=== PATIENT | female | born 1950 | race Hispanic/Latino ===

== ENCOUNTER 2017-09-05 10:09 | Emergency (ER) | payer MEDICARE, OTHER ==
[2017-09-05 10:09] VITALS: BMI 33.6
[2017-09-05 10:16] VITALS: O2SAT 99
--- NOTE | 2017-09-05 10:19 | ED PDOC ---
Arrival/HPI - General Chief Complaint: Dizziness/Lightheaded Time Seen by Provider: 09/05/17 10:12 Historian: Patient - History of Present Illness Narrative History of Present Illness (Text): 09/05/17 10:18 66 year old female, whose past medical history includes hyperlipidemia, SVT A- fib s/p ablation, and s/p transseptal ablation (05/2017), presents to the emergency department complaining of dizziness that began 15 minutes prior to arrival. Patient reports she was at work when the symptoms began. She began to feel lightheaded and experienced a sudden bowel movement associated with diaphoretic and shortness of breath. Patient describes the stool color as brown. Patient also reported upper-respiratory symptoms of cough with phlegm, fever, and chills that began 3 days ago. Patient reports back pain, but denies any chest pain, nausea, vomiting, diarrhea, urinary symptoms, neck pain, or any other complaints. PMD: Dr. Raul David Gluer Machine Operator: Dr. 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) Symptom Onset: Sudden Activities at Onset: Light Context: Work Past Medical History - Provider Review Nursing Documentation Reviewed: Yes - Infectious Disease Hx of Infectious Diseases: None - Tetanus Immunization Tetanus Immunization: Unknown - Reproductive Menopause: Yes - Cardiac Hx Atrial Fibrillation: Yes Other/Comment: svt - Pulmonary Hx Respiratory Disorders: No - Neurological Hx Paralysis: No - HEENT Hx HEENT Disorder: Yes (eyeglasses) - Renal Hx Renal Disorder: No - Endocrine/Metabolic Hx Endocrine Disorders: No - Hematological/Oncological Hx Blood Transfusions: No Hx Blood Transfusion Reaction: No - Integumentary Hx Dermatological Disorder: No - Musculoskeletal/Rheumatological Hx Musculoskeletal Disorders: No - Gastrointestinal Hx Gastroesophageal Reflux: Yes - Genitourinary/Gynecological Hx Genitourinary Disorders: No - Psychiatric Hx Substance Use: No - Surgical History Other/Comment: bilateral mastectomy - Anesthesia Hx Anesthesia Reactions: Yes (VOMITING) Hx Malignant Hyperthermia: No - Suicidal Assessment Feels Threatened In Home Enviroment: No Family/Social History - Physician Review Nursing Documentation Reviewed: Yes Family/Social History: No Known Family HX Smoking Status: Never Smoked Hx Alcohol Use: Yes (SOCIAL) Frequency of alcohol use: Socially Hx Substance Use: No Hx Substance Use Treatment: No Allergies/Home Meds Allergies/Adverse Reactions: Allergies levofloxacin [From Levaquin] Allergy (Severe, Verified 02/29/16 13:30) RASH pneumococcal vaccine Adverse Reaction (Verified 02/29/16 23:15) ITCHING Home Medications: Home Meds Medication Instructions Recorded Confirmed Calcium/Vitamin D [Oyster Shell 1 tab PO DAILY 02/29/16 04/10/16 Calcium/Vitamin D 500 mg-200 IU] L.acidoph,Paracasei, B.lactis 1 cap PO DAILY 02/29/16 04/10/16 [Probiotic] Omeprazole [Prilosec] 40 mg PO DAILY 02/29/16 04/10/16 Propranolol HCl [Inderal LA] 80 mg PO DAILY 04/09/16 04/10/16 Metoprolol Tartrate [Lopressor] 25 mg PO BID 04/10/16 04/10/16 Review of Systems - Physician Review All systems were reviewed & negative as marked: Yes - Review of Systems Constitutional: Fevers, Other (Chills) Respiratory: SOB, Cough Cardiovascular: absent: Chest Pain Genitourinary Female: absent: Dysuria, Frequency, Hematuria Musculoskeletal: Back Pain. absent: Neck Pain Neurological: Headache, Dizziness (Lightheadediness) Endocrine: Diaphoresis Physical Exam Vital Signs Reviewed: Yes Vital Signs Temp Pulse Resp BP Pulse Ox 09/05/17 13:15 89 20 142/78 99 09/05/17 10:09 100.3 F H 109 H 18 114/70 99 Temperature: Febrile Blood Pressure: Normal Pulse: Tachycardic Respiratory Rate: Normal Appearance: Positive for: Well-Appearing, Non-Toxic, Comfortable Pain Distress: None Mental Status: Positive for: Alert and Oriented X 3 Finger Stick Blood Glucose: 121 - Systems Exam Head: Present: Atraumatic, Normocephalic Pupils: Present: PERRL Extroacular Muscles: Present: EOMI Conjunctiva: Present: Normal Mouth: Present: Moist Mucous Membranes Neck: Present: Normal Range of Motion Respiratory/Chest: Present: Clear to Auscultation, Good Air Exchange. No: Respiratory Distress, Accessory Muscle Use Cardiovascular: Present: Regular Rate and Rhythm, Normal S1, S2. No: Murmurs Abdomen: Present: Normal Bowel Sounds. No: Tenderness, Distention, Peritoneal Signs Back: Present: Normal Inspection Upper Extremity: Present: Normal Inspection. No: Cyanosis, Edema Lower Extremity: Present: Normal Inspection. No: Edema Neurological: Present: GCS=15, CN II-XII Intact, Speech Normal Skin: Present: Warm, Normal Color, Diaphoretic. 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 Patient began cold-like symptoms 3 days ago. Differential Diagnosis included but are not limited to: Near Syncope secondary to dehydration, viral syndrome r/o PNA r/o UTI Plan: -- VBG -- EKG -- Chest X-ray -- IV Fluids -- Urinalysis -- Influenza A B -- Reassess and disposition Prior Visits: Notes and results from previous visits were reviewed. Patient was last seen in the emergency department on 02/29/16 complaining of intermittent palpations. Patient was admitted. Progress Notes: EKG shows Junctional rhythm at [address] elevations. Interpreted by me. PROCEDURE: Chest X-ray Dictator: Iker Mascorro MD Report Date : 09/05/2017 10:59:31 IMPRESSION: No acute consolidation. Suspect minimal linear scarring left lateral lower lung field 09/05/17 13:58 Labs reviewed. Creatinine normal. After 2 Liters of IVF patient felt much better. Orthostatics normal. She was able to stand up without lightheadedness. No nausea or vomiting. UA showed negative ketones. She will go home with her . She was advised to return to the ED if symptoms worsen or any other concern. - Lab Interpretations Lab Results: 09/05/17 10:30 09/05/17 10:30 Lab Results 09/05/17 13:35: Urine Color Yellow, Urine Appearance Clear, Urine pH 6.0, Ur Specific Una 1.015, Urine Protein Trace H, Urine Glucose (UA) Negative, Urine Ketones Negative, Urine Blood Negative, Urine Nitrate Negative, Urine Bilirubin Negative, Urine Urobilinogen 1.0 H, Ur Leukocyte Esterase Trace H, Urine RBC Pending, Urine WBC Pending 09/05/17 11:12: Urine Color Cancelled, Urine Appearance Cancelled, Urine pH Cancelled, Ur Specific Una Cancelled, Urine Protein Cancelled, Urine Glucose (UA) Cancelled, Urine Ketones Cancelled, Urine Blood Cancelled, Urine Nitrate Cancelled, Urine Bilirubin Cancelled, Urine Urobilinogen Cancelled, Ur Leukocyte Esterase Cancelled, Urine RBC Cancelled, Urine WBC Cancelled, Ur Epithelial Cells Cancelled, Calcium Oxalate Crystal Cancelled, Uric Acid Crystals Cancelled, Triple Phos Crystals Cancelled, Other Crystals Cancelled, Amorphous Sediment Cancelled, Urine Bacteria Cancelled, Hyaline Casts Cancelled , Fine Granular Casts Cancelled, Coarse Granular Casts Cancelled, Waxy Casts Cancelled, RBC Casts Cancelled, WBC Casts Cancelled, Urine Other Cancelled 09/05/17 10:30: pO2 24 L, VBG pH 7.36, VBG pCO2 44.0, VBG HCO3 24.9, VBG Total CO2 26.3, VBG O2 Sat (Calc) 56.5, VBG Base Excess -0.8 L, VBG Potassium 3.9, Sodium 140.0, Chloride 103.0, Glucose 127 H, Lactate 2.3 H, FiO2 21.0, Venous Blood Potassium 3.9 09/05/17 10:30: Influenza Typ A,B (EIA) Negative for flu a/b 09/05/17 10:30: Sodium 140, Chloride 104, Potassium 3.8, Carbon Dioxide 24, Anion Gap 16, BUN 17, Creatinine 1.2, Est GFR ( Amer) 54, Est GFR (Non- Af Amer) 45, Random Glucose 126 H, Calcium 9.7, Magnesium 1.8, Total Bilirubin 0.9, AST 58 H, ALT 54, Alkaline Phosphatase 89, Lactate Dehydrogenase 672, Total Creatine Kinase 102, Troponin I < 0.01, Total Protein 8.1, Albumin 4.6, Globulin 3.5, Albumin/Globulin Ratio 1.3 09/05/17 10:30: WBC 6.9, RBC 5.28, Hgb 15.8, Hct 47.2, MCV 89.4, MCH 29.9, MCHC 33.5, RDW 12.9, Plt Count 242, MPV 9.2, Gran % 67.6, Lymph % (Auto) 17.9 L, [place] % (Auto) 12.3 H, Eos % (Auto) 1.6, Baso % (Auto) 0.6, Gran # 4.69, Lymph # 1.2, [place] # 0.9 H, Eos # 0.1, Baso # 0.04 I have reviewed the lab results: Yes - RAD Interpretation Radiology Orders: 09/05/17 10:21 CHEST PORTABLE [RAD] Stat - EKG Interpretation Interpreted by ED Physician: Yes Type: 12 lead EKG - Medication Orders Current Medication Orders: Discontinued Medications Acetaminophen (Tylenol 325mg Tab) 975 mg PO STAT STA Stop: 09/05/17 11:11 Last Admin: 09/05/17 11:33 Dose: 975 mg MAR Pain/Vitals Document 09/05/17 11:33 SRE (Rec: 09/05/17 11:33 SRE [id number]) Pain Reassessment Is This A Pain ReAssessment? No Sodium Chloride (Sodium Chloride 0.9%) 1,000 mls @ 999 mls/hr IV .Q1H1M STA Stop: 09/05/17 11:22 Last Admin: 09/05/17 11:10 Dose: 999 mls/hr eMAR Start Stop Document 09/05/17 11:10 SRE (Rec: 09/05/17 11:10 SRE [id number]) Intravenous Solution Start Date 09/05/17 Start Time 10:30 End Date 09/05/17 End time 11:30 Total Infusion Time 60 Sodium Chloride (Sodium Chloride 0.9%) 1,000 mls @ 999 mls/hr IV .Q1H1M STA Stop: 09/05/17 13:28 Last Admin: 09/05/17 12:56 Dose: 999 mls/hr eMAR Start Stop Document 09/05/17 12:56 SRE (Rec: 09/05/17 12:57 SRE [id number]) Intravenous Solution Start Date 09/05/17 Start Time 12:30 End Date 09/05/17 End time 13:30 Total Infusion Time 60 - Scribe Statement The provider has reviewed the documentation as recorded by the Cynthia Pritchett Provider Scribe Attestation: All medical record entries made by the Cynthia were at my direction and personally dictated by me. I have reviewed the chart and agree that the record accurately reflects my personal performance of the history, physical exam, medical decision making, and the department course for this patient. I have also personally directed, reviewed, and agree with the discharge instructions and disposition. Disposition/Present on Arrival - Present on Arrival Any Indicators Present on Arrival: No History of DVT/PE: No History of Uncontrolled Diabetes: No Urinary Catheter: No History of Decub. Ulcer: No History Surgical Site Infection Following: None - Disposition Have Diagnosis and Disposition been Completed?: Yes Diagnosis: Viral syndrome, Dehydration Disposition: HOME/ ROUTINE Disposition Time: 14:00 Patient Plan: Discharge Patient Problems: Current Active Problems Problem Status Onset Viral syndrome Acute Dehydration Acute Condition: IMPROVED Discharge Instructions (ExitCare): Dehydration (ED), Viral Syndrome (ED) Additional Instructions: Cassie Echeverria, thank you for letting us take care of you today. Your provider was Dr. Garg. You were treated for UTI, Viral Syndrome. The emergency medical care you received today was directed at your acute symptoms. If you were prescribed any medication, please fill it and take as directed. It may take several days for your symptoms to resolve. Return to the Emergency Department if your symptoms worsen, do not improve, or if you have any other problems. Please contact your doctor or call one of the physicians/clinics you have been referred to that are listed on the Patient Visit Information form that is included in your discharge packet. Bring any paperwork you were given at discharge with you along with any medications you are taking to your follow up visit. Our treatment cannot replace ongoing medical care by a primary care provider (PCP) outside of the emergency department. Thank you for allowing the [facility] team to be part of your care today. If you had an X-Ray or CT scan: A Radiologist will review the ED reading if any change in treatment is needed we will contact you. If you had a blood, urine, or wound culture: It will take several days for the results, if any change in treatment is needed we will contact you. If you had an STI test: It will take 48 hours for the results. Please call after 1 week if you have not heard back. Referrals: Raul David MD [Primary Care Provider] - Follow up with primary Forms: [employer] ([place]ian), WORK NOTE
[2017-09-05] MEDS ORDERED: Sodium Chloride 0.9% 1,000 ML IV STA ×2 (10:22→12:28)
[2017-09-05 10:26] VITALS: TEMP 100.3
--- NOTE | 2017-09-05 11:01 | RAD ---
HISTORY: chest pain and dizziness, cough r/o pna COMPARISON: Comparison chest dated 02/29/2016. FINDINGS: LUNGS: Re- demonstrated is some minimal curvilinear scarring in the left lateral lower lung field. Metallic clips also again seen overlying the left lower nel thorax PLEURA: No significant pleural effusion identified, no pneumothorax apparent. CARDIOVASCULAR: Normal. OSSEOUS STRUCTURES: No significant abnormalities. VISUALIZED UPPER ABDOMEN: Normal. OTHER FINDINGS: None. IMPRESSION: No acute consolidation. Suspect minimal linear scarring left lateral lower lung field
[2017-09-05 11:02] LABS: VENOUS BLOOD GAS BASE EXCESS -0.8 mmol/L (0.0-2.0); VENOUS BLOOD PH 7.36 (7.32-7.43)
[2017-09-05 11:07] LABS: BASO # 0.04 K/mm3 (0.0-2.0); BASO % 0.6 % (0.0-3.0); EOS # 0.1 (0.0-0.7); EOS % 1.6 % (1.5-5.0); GRAN # 4.69 (1.4-6.5); GRAN % 67.6 % (50.0-68.0); HEMATOCRIT 47.2 % (36.0-48.0); LYMPH # 1.2 (1.2-3.4); LYMPH % 17.9 % (22.0-35.0); MEAN CELL VOLUME 89.4 fl (80.0-105.0); MEAN CORPUSCULAR HEMOGLOBIN 29.9 pg (25.0-35.0); MEAN CORPUSCULAR HGB CONC 33.5 g/dl (31.0-37.0); MEAN PLATELET VOLUME 9.2 fl (7.0-11.0); MONO # 0.9 (0.1-0.6); MONO % 12.3 % (1.0-6.0); RED CELL DISTRIBUTION WIDTH 12.9 % (11.5-14.5); WHITE BLOOD COUNT 6.9 10^3/ul (4.5-11.0)
[2017-09-05 11:14] LABS: ALB/GLOB RATIO 1.3 (1.1-1.8); ALKALINE PHOSPHATASE 89 U/L (38-126); ALT/SGPT 54 U/L (7-56); AST/SGOT 58 U/L (14-36); BILIRUBIN,TOTAL 0.9 mg/dL (0.2-1.3); BLOOD UREA NITROGEN 17 mg/dL (7-21); CALCIUM 9.7 mg/dL (8.4-10.5); CARBON DIOXIDE 24 mmol/L (21-33); CHLORIDE 104 mmol/L (98-107); GFR AFRICAN-AMERICAN 54; GLUCOSE,RANDOM 126 mg/dL (70-110); MAGNESIUM 1.8 mg/dL (1.7-2.2); POTASSIUM 3.8 mmol/L (3.6-5.0); SODIUM 140 mmol/L (132-148); TOTAL PROTEIN 8.1 g/dL (5.8-8.3)
[2017-09-05 11:22] LABS: TROPONIN I < 0.01 ng/mL
[2017-09-05 13:16] VITALS: BP 142/78; PULSE 89; RESP 20
[2017-09-05 13:46] LABS: URINE APPEARANCE CLEAR (CLEAR); URINE BILIRUBIN NEGATIVE (NEGATIVE); URINE BLOOD NEGATIVE (NEGATIVE); URINE COLOR YELLOW (YELLOW); URINE GLUCOSE (UA) NEGATIVE (NEGATIVE); URINE KETONE NEGATIVE (NEGATIVE); URINE LEUKOCYTE ESTERASE TRACE Leu/uL (NEGATIVE); URINE PROTEIN TRACE mg/dL (<30 mg/dL)
[2017-09-05 14:06] LABS: URINE RBC 0 - 2 /hpf (0-2)
[2017-09-05 14:07] LABS: URINE AMORPHOUS SEDIMENT MODERATE; URINE BACTERIA MANY (NEG)
--- NOTE | 2017-09-06 08:46 | CARD ---
APPROVED REPORT EKG Measurement Heart [id number] <Conclusion> Accelerated Junctional rhythm VS A flutter with 3;1 conduction Abnormal ECG
== END 2017-09-05 14:19 | disposition home or self-care (01) ==
LOC: ED 10:09
DX: B34.9 Viral infection, unspecified (principal); E86.0 Dehydration; E78.5 Hyperlipidemia, unspecified; I48.91 Unspecified atrial fibrillation; I47.1 Supraventricular tachycardia
CPT/HCPCS: 71010; 80053; 81001; 82550; 82803; 83615; 83735; 84484; 85025; 87040; 87086; 87181; 87804; 93005; 96360; 96361; 99285; J7040

== ENCOUNTER 2018-03-29 10:49 | Emergency (ER) | payer OTHER ==
[2018-03-29 10:51] VITALS: BMI 33.6
[2018-03-29 11:44] VITALS: RESP 18; TEMP 98.5
[2018-03-29 12:12] VITALS: BP 122/70; PULSE 71; O2SAT 99
--- NOTE | 2018-03-29 17:01 | ED PDOC ---
Arrival/HPI - General Chief Complaint: Abnormal Skin Integrity Time Seen by Provider: 03/29/18 11:25 Historian: Patient - History of Present Illness Narrative History of Present Illness (Text): 03/29/18 15:35 67 year old female, with past medical history of hyperlipidemia, SVT A-fib s/p ablation, and s/p transseptal ablation (05/2017), presents to the Emergency department complaining of painful rash to his her groin area for past several days. Patient states radiating pain to his left leg and discomfort while walking. Patient denies any fever, chills, nausea, vomiting, diarrhea, abdominal pain, dysuria, vaginal discharge or complaints, chest pain, shortness of breath or any other complaints. Time/Duration: < week Symptom Onset: Gradual Symptom Course: Unchanged Activities at Onset: Light Context: Home Past Medical History - Provider Review Nursing Documentation Reviewed: Yes - Infectious Disease Hx of Infectious Diseases: None - Tetanus Immunization Tetanus Immunization: Unknown - Cardiac Hx Atrial Fibrillation: Yes Other/Comment: svt - Pulmonary Hx Respiratory Disorders: No - Neurological Hx Paralysis: No - HEENT Hx HEENT Disorder: Yes (eyeglasses) - Renal Hx Renal Disorder: No - Endocrine/Metabolic Hx Endocrine Disorders: No - Hematological/Oncological Hx Blood Transfusions: No Hx Blood Transfusion Reaction: No - Integumentary Hx Dermatological Disorder: No - Musculoskeletal/Rheumatological Hx Musculoskeletal Disorders: No - Gastrointestinal Hx Gastroesophageal Reflux: Yes - Genitourinary/Gynecological Hx Genitourinary Disorders: No - Psychiatric Hx Emotional Abuse: No Hx Physical Abuse: No Hx Substance Use: No - Surgical History Other/Comment: bilateral mastectomy - Anesthesia Hx Anesthesia: Yes Hx Anesthesia Reactions: Yes (VOMITING) Hx Malignant Hyperthermia: No - Suicidal Assessment Feels Threatened In Home Enviroment: No Family/Social History - Physician Review Nursing Documentation Reviewed: Yes Family/Social History: No Known Family HX Smoking Status: Never Smoked Hx Alcohol Use: Yes (SOCIAL) Hx Substance Use: No Hx Substance Use Treatment: No Allergies/Home Meds Allergies/Adverse Reactions: Allergies levofloxacin [From Levaquin] Allergy (Severe, Verified 02/29/16 13:30) RASH pneumococcal vaccine Adverse Reaction (Verified 02/29/16 23:15) ITCHING Home Medications: Home Meds Medication Instructions Recorded Confirmed Calcium/Vitamin D [Oyster Shell 1 tab PO DAILY 02/29/16 04/10/16 Calcium/Vitamin D 500 mg-200 IU] L.acidoph,Paracasei, B.lactis 1 cap PO DAILY 02/29/16 04/10/16 [Probiotic] Omeprazole [Prilosec] 40 mg PO DAILY 02/29/16 04/10/16 Propranolol HCl [Inderal LA] 80 mg PO DAILY 04/09/16 04/10/16 Metoprolol Tartrate [Lopressor] 25 mg PO BID 04/10/16 04/10/16 Review of Systems - Physician Review All systems were reviewed & negative as marked: Yes - Review of Systems Constitutional: Normal. absent: Fevers Eyes: Normal ENT: Normal Respiratory: Normal. absent: SOB Cardiovascular: Normal. absent: Chest Pain Gastrointestinal: Normal. absent: Abdominal Pain, Diarrhea, Nausea, Vomiting Genitourinary Female: Normal. absent: Dysuria, Vaginal Discharge Musculoskeletal: Normal Skin: Rash (left groin area) Neurological: Normal Endocrine: Normal Hemo/Lymphatic: Normal Psychiatric: Normal Physical Exam Vital Signs Reviewed: Yes Vital Signs Temp Pulse Resp BP Pulse Ox 03/29/18 12:11 71 18 122/70 99 03/29/18 10:51 98.5 F 76 18 123/70 98 Temperature: Afebrile Blood Pressure: Normal Pulse: Regular Respiratory Rate: Normal Appearance: Positive for: Well-Appearing, Non-Toxic, Comfortable Pain Distress: None Mental Status: Positive for: Alert and Oriented X 3 - Systems Exam Head: Present: Atraumatic, Normocephalic Pupils: Present: PERRL Extroacular Muscles: Present: EOMI Conjunctiva: Present: Normal Mouth: Present: Moist Mucous Membranes Neck: Present: Normal Range of Motion Respiratory/Chest: Present: Clear to Auscultation, Good Air Exchange. No: Respiratory Distress, Accessory Muscle Use Cardiovascular: Present: Regular Rate and Rhythm, Normal S1, S2. No: Murmurs Abdomen: No: Tenderness, Distention, Peritoneal Signs Back: Present: Normal Inspection Upper Extremity: Present: Normal Inspection. No: Cyanosis, Edema Lower Extremity: Present: Normal Inspection. No: Edema Neurological: Present: GCS=15, CN II-XII Intact, Speech Normal Skin: Present: Warm, Dry, Rashes (dermatomal rash to left groin area, tender to touch.), Normal Color Psychiatric: Present: Alert, Oriented x 3, Normal Insight, Normal Concentration Medical Decision Making ED Course and Treatment: 03/29/18 15:35 Impression: 67 year old female presents to the Emergency department for rash to left groin area. Plan: -- Reassess and disposition Prior Visits: Notes and results from previous visits were reviewed. Progress Notes: - Scribe Statement The provider has reviewed the documentation as recorded by the Scribe Jeffery Graves. All medical record entries made by the Scribe were at my direction and personally dictated by me. I have reviewed the chart and agree that the record accurately reflects my personal performance of the history, physical exam, medical decision making, and the department course for this patient. I have also personally directed, reviewed, and agree with the discharge instructions and disposition. Disposition/Present on Arrival - Present on Arrival Any Indicators Present on Arrival: No History of DVT/PE: No History of Uncontrolled Diabetes: No Urinary Catheter: No History of Decub. Ulcer: No History Surgical Site Infection Following: None - Disposition Have Diagnosis and Disposition been Completed?: Yes Diagnosis: Zoster Disposition: HOME/ ROUTINE Disposition Time: 11:45 Condition: GOOD Discharge Instructions (ExitCare): Shingles (ED) Additional Instructions: CORBY DAVILA, thank you for letting us take care of you today. Your provider was Kedar Aaron DO and you were treated for LEG PAIN/FEVER/CHILLS /RASH. The emergency medical care you received today was directed at your acute symptoms. If you were prescribed any medication, please fill it and take as directed. It may take several days for your symptoms to resolve. Return to the Emergency Department if your symptoms worsen, do not improve, or if you have any other problems. Please contact your doctor or call one of the physicians/clinics you have been referred to that are listed on the Patient Visit Information form that is included in your discharge packet. Bring any paperwork you were given at discharge with you along with any medications you are taking to your follow up visit. Our treatment cannot replace ongoing medical care by a primary care provider outside of the emergency department. Thank you for allowing the [facility] team to be part of your care today. Follow up with your primary care doctor in 3-4 days for re-evaluation and further management. Prescriptions: Acetaminophen with Codeine [Tylenol with Codeine #3 Tablet] 1 each PO Q6 PRN # 20 tablet PRN Reason: Pain, Severe (8-10) Ondansetron ODT [Zofran ODT] 8 mg PO Q8 PRN #20 odt PRN Reason: Nausea/Vomiting predniSONE [Prednisone] 40 mg PO DAILY #10 tab Valacyclovir HCl [Valtrex] 1 gm PO TID #21 tablet Referrals: Raul David MD [Primary Care Provider] - Follow up with primary Forms: [employer] ([place]ian)
== END 2018-03-29 12:11 | disposition home or self-care (01) ==
LOC: ED 10:49
DX: B02.9 Zoster without complications (principal)

== ENCOUNTER 2018-04-08 07:59 | Emergency (ER) | payer OTHER ==
[2018-04-08 07:59] VITALS: BMI 33.6
[2018-04-08 08:34] VITALS: TEMP 99.2
--- NOTE | 2018-04-08 09:27 | ED PDOC ---
Arrival/HPI - General Historian: Patient - History of Present Illness Time/Duration: Other (see hpi) Context: Home - General Chief Complaint: Abnormal Skin Integrity Time Seen by Provider: 04/08/18 09:13 - History of Present Illness Narrative History of Present Illness (Text): 04/08/18 09:13 This 67 year old female, with past medical history of hyperlipidemia, SVT A-fib s/p ablation, and s/p transseptal ablation (05/2017), presents to the Emergency department complaining of nausea, and left groin pain x 2 days. Patient stated she has not been able to tolerate food or fluids due to nausea, and vomiting for 24 hours. Denies sob, cp, abdominal pain, constipation, or urinary symptoms. Patient has been taking Tylenol #3, Tramadol, and Gabapentin for pain (Maria Del Carmen Siu) Past Medical History - Provider Review Nursing Documentation Reviewed: Yes - Infectious Disease Hx of Infectious Diseases: None - Tetanus Immunization Tetanus Immunization: Unknown - Reproductive Menopause: Yes - Cardiac Hx Atrial Fibrillation: Yes Other/Comment: svt - Pulmonary Hx Respiratory Disorders: No - Neurological Hx Paralysis: No - HEENT Hx HEENT Disorder: Yes (eyeglasses) - Renal Hx Renal Disorder: No - Endocrine/Metabolic Hx Endocrine Disorders: No - Hematological/Oncological Hx Blood Transfusions: No Hx Blood Transfusion Reaction: No - Integumentary Hx Dermatological Disorder: No - Musculoskeletal/Rheumatological Hx Musculoskeletal Disorders: No - Gastrointestinal Hx Gastroesophageal Reflux: Yes - Genitourinary/Gynecological Hx Genitourinary Disorders: No - Psychiatric Hx Emotional Abuse: No Hx Physical Abuse: No Hx Substance Use: No - Surgical History Other/Comment: bilateral mastectomy - Anesthesia Hx Anesthesia: Yes Hx Anesthesia Reactions: Yes (VOMITING) Hx Malignant Hyperthermia: No - Suicidal Assessment Feels Threatened In Home Enviroment: No Family/Social History - Physician Review Nursing Documentation Reviewed: Yes Family/Social History: Other (noncontributory) Smoking Status: Never Smoked Hx Alcohol Use: Yes (SOCIAL) Hx Substance Use: No Hx Substance Use Treatment: No Allergies/Home Meds Allergies/Adverse Reactions: Allergies levofloxacin [From Levaquin] Allergy (Severe, Verified 04/08/18 08:11) RASH pneumococcal vaccine Adverse Reaction (Verified 04/08/18 08:11) ITCHING Home Medications: Home Meds Medication Instructions Recorded Confirmed Calcium/Vitamin D [Oyster Shell 1 tab PO DAILY 02/29/16 04/10/16 Calcium/Vitamin D 500 mg-200 IU] Rosa Mariaacidoph,Paracasei, B.lactis 1 cap PO DAILY 02/29/16 04/10/16 [Probiotic] Omeprazole [Prilosec] 40 mg PO DAILY 02/29/16 04/10/16 Propranolol HCl [Inderal LA] 80 mg PO DAILY 04/09/16 04/10/16 Metoprolol Tartrate [Lopressor] 25 mg PO BID 04/10/16 04/10/16 Review of Systems - Review of Systems Constitutional: Normal. absent: Fatigue, Weight Change, Fevers Eyes: Normal ENT: Normal Respiratory: Normal Cardiovascular: Normal Gastrointestinal: Nausea. absent: Abdominal Pain, Stool Changes, Constipation, Diarrhea, Appetite Changes, Hematochezia, Hematemesis, Anorexia, Food Intolerance Genitourinary Female: Normal Musculoskeletal: Normal Skin: Rash (painful) Neurological: Normal. absent: Headache, Dizziness, Focal Weakness, Gait Changes , Speech Changes, Facial Droop, Disequilibrium, Seizure Endocrine: Normal Hemo/Lymphatic: Normal Psychiatric: Normal Physical Exam Temperature: Afebrile Blood Pressure: Normal Pulse: Regular Respiratory Rate: Normal Appearance: Positive for: Well-Appearing, Non-Toxic, Comfortable Pain Distress: None Mental Status: Positive for: Alert and Oriented X 3 Finger Stick Blood Glucose: 84 - Systems Exam Head: Present: Atraumatic, Normocephalic Pupils: Present: PERRL Extroacular Muscles: Present: EOMI Conjunctiva: Present: Normal Mouth: Present: Moist Mucous Membranes Neck: Present: Normal Range of Motion Respiratory/Chest: Present: Clear to Auscultation, Good Air Exchange. No: Respiratory Distress, Accessory Muscle Use Cardiovascular: Present: Regular Rate and Rhythm, Normal S1, S2. No: Murmurs Abdomen: No: Tenderness, Distention, Peritoneal Signs Back: Present: Normal Inspection. No: CVA Tenderness Upper Extremity: Present: Normal Inspection. No: Cyanosis, Edema Lower Extremity: Present: NORMAL PULSES, Normal ROM, Neurovascularly Intact, Capillary Refill < 2 s, Other ((+) vesicular rash left groin area. No cellulitis, mild tender). No: Edema Neurological: Present: GCS=15, CN II-XII Intact, Speech Normal Skin: Present: Warm, Dry, Normal Color. No: Rashes Psychiatric: Present: Alert, Oriented x 3, Normal Insight, Normal Concentration Vital Signs Temp Pulse Resp BP Pulse Ox 04/08/18 14:04 91 H 18 137/76 96 04/08/18 08:32 99.2 F 81 17 127/84 97 Medical Decision Making Re-evaluation Time: 14:03 Reassessment Condition: Re-examined, Improved - Lab Interpretations I have reviewed the lab results: Yes Interpretation: No sign. chg./baseline ED Course and Treatment: 04/08/18 13:39 i have personally seen and examined the patient. patient reports chief complaint of left groin/thigh pain stemming from known diagnosis from shingles. patient was initially on tylenol with codeine, transitioned to tramadol. will extend analgesic to lidoderm patch. (Prakash Horton) 04/08/18 14:00 Dr. Houser had examined patient, and he recommended to have patient f/u his office in 1-2 days. 04/08/18 14:03 Re-evaluation. Patient feels better. Discussed results and plan with patient who expresses understanding. All questions answered and there is agreement with the plan to discharge home with instructions. Patient stable for discharge. Return if symptoms persist or worsen. (Maria Del Carmen Siu) - Lab Interpretations Lab Results: 04/08/18 09:30 04/08/18 09:30 Lab Results 04/08/18 12:30: Urine Color Yellow, Urine Appearance Clear, Urine pH 6.0, Ur Specific [place] 1.010, Urine Protein Negative, Urine Glucose (UA) Negative, Urine Ketones Trace H, Urine Blood Negative, Urine Nitrate Negative, Urine Bilirubin Negative, Urine Urobilinogen 0.2, Ur Leukocyte Esterase Negative 04/08/18 09:30: Sodium 141, Potassium 4.3, Chloride 98, Carbon Dioxide 29, Anion Gap 18, BUN 18, Creatinine 0.8, Est GFR ( Amer) > 60, Est GFR (Non- Af Amer) > 60, Random Glucose 100, Calcium 9.8, Total Bilirubin 1.6 H, AST 36, ALT 75 H, Alkaline Phosphatase 92, Total Protein 8.3, Albumin 4.9 H, Globulin 3.5, Albumin/Globulin Ratio 1.4, Lipase 39 04/08/18 09:30: WBC 11.7 H D, RBC 5.31, Hgb 16.1 H, Hct 46.2, MCV 87.0, MCH 30.3 , MCHC 34.8, RDW 13.4, Plt Count 339, MPV 8.4, Gran % 68.4 H, Lymph % (Auto) 23.7, [place] % (Auto) 7.1 H, Eos % (Auto) 0.3 L, Baso % (Auto) 0.5, Gran # 7.99 H , Lymph # (Auto) 2.8, [place] # (Auto) 0.8 H, Eos # (Auto) 0.0, Baso # (Auto) 0.06 04/08/18 09:07: POC Glucose (mg/dL) 84 - Medication Orders Current Medication Orders: Discontinued Medications Diphenhydramine HCl (Benadryl) 25 mg IVP STAT STA Stop: 04/08/18 10:42 Last Admin: 04/08/18 11:55 Dose: 25 mg IVP Administration Document 04/08/18 11:55 GMD (Rec: 04/08/18 11:56 GMD [facility] [id number] Charges for Administration # of IVP Administrations 1 Sodium Chloride (Sodium Chloride 0.9%) 1,000 mls @ 999 mls/hr IV .Q1H1M STA Stop: 04/08/18 10:28 Last Admin: 04/08/18 10:03 Dose: 999 mls/hr eMAR Start Stop Document 04/08/18 10:03 GMD (Rec: 04/08/18 10:03 D [facility] [id number] Intravenous Solution Start Date 04/08/18 Start Time 10:03 End Date 04/08/18 End time 11:04 Total Infusion Time 61 Famotidine (Pepcid 20mg/50ml Premix) 20 mg in 50 mls @ 100 mls/hr IVPB STAT STA Stop: 04/08/18 09:58 Last Admin: 04/08/18 10:02 Dose: 100 mls/hr eMAR Start Stop Document 04/08/18 10:02 GMD (Rec: 04/08/18 10:02 D [facility] [id number] Intravenous Solution Start Date 04/08/18 Start Time 10:02 End Date 04/08/18 End time 10:32 Total Infusion Time 30 Sodium Chloride (Sodium Chloride 0.9%) 1,000 mls @ 999 mls/hr IV .Q1H1M STA Stop: 04/08/18 12:28 Last Admin: 04/08/18 11:56 Dose: 999 mls/hr eMAR Start Stop Document 04/08/18 11:56 GMD (Rec: 04/08/18 11:56 GMD [facility] [id number][place] Intravenous Solution Start Date 04/08/18 Start Time 11:56 End Date 04/08/18 End time 12:57 Total Infusion Time 61 Ketorolac Tromethamine (Toradol) 15 mg IVP STAT STA Stop: 04/08/18 09:29 Last Admin: 04/08/18 10:02 Dose: 15 mg MAR Pain Assessment Document 04/08/18 10:02 GMD (Rec: 04/08/18 10:02 GMD [facility] [id number] Pain Reassessment Is this a pain reassessment? No Presence of Pain Presence of Pain Yes IVP Administration Document 04/08/18 10:02 GMD (Rec: 04/08/18 10:02 GMD [facility] [id number] Charges for Administration # of IVP Administrations 1 Lidocaine (Lidoderm) 1 ea TD DAILY STA Stop: 04/08/18 13:38 Last Admin: 04/08/18 13:46 Dose: 1 ea MAR Transdermal Patch Site Document 04/08/18 13:46 GMD (Rec: 04/08/18 13:47 GMD [facility] [id number]) Transdermal Patch Site Transdermal Patch Site Left Thigh Metoclopramide HCl (Reglan) 10 mg IVP STAT STA Stop: 04/08/18 10:42 Last Admin: 04/08/18 11:55 Dose: 10 mg IVP Administration Document 04/08/18 11:55 GMD (Rec: 04/08/18 11:55 [id number] Charges for Administration # of IVP Administrations 1 Ondansetron HCl (Zofran Inj) 4 mg IVP STAT STA Stop: 04/08/18 09:28 Last Admin: 04/08/18 10:02 Dose: 4 mg IVP Administration Document 04/08/18 10:02 GMD (Rec: 04/08/18 10:02 GMD [facility] [id number]) Charges for Administration # of IVP Administrations 1 Disposition/Present on Arrival - Present on Arrival Any Indicators Present on Arrival: No History of DVT/PE: No History of Uncontrolled Diabetes: No Urinary Catheter: No History of Decub. Ulcer: No History Surgical Site Infection Following: None - Disposition Have Diagnosis and Disposition been Completed?: Yes Disposition Time: 14:03 Patient Plan: Discharge - Disposition Diagnosis: Nausea & vomiting Disposition: HOME/ ROUTINE Patient Problems: Current Active Problems Problem Status Onset Nausea and vomiting Acute Condition: IMPROVED Discharge Instructions (ExitCare): Nausea and Vomiting, Adult (DC) Additional Instructions: Call private doctor for follow up visit in 1-[address] Houser for revaluation in 1-2 days. Take s medication as instructed . Return to emergency if symptoms worsen. Prescriptions: Acetaminophen/Hydrocodone Bi [Vicodin 300 mg-5 mg] 1 tab PO Q4H PRN #15 tab PRN Reason: Pain, Severe (8-10) Lidocaine 5% [Lidoderm] 1 ea TD BID PRN #28 patch PRN Reason: Pain, Severe (8-10) Ondansetron ODT [Zofran ODT] 4 mg PO Q4H PRN #15 odt PRN Reason: Nausea/Vomiting Sucralfate [Carafate] 1 gm PO DAILY #30 tab Referrals: Raul David MD [Primary Care Provider] - Follow up with primary Mouna Houser MD [Medical Doctor] - Follow up with primary Forms: [email or web address] (Ukrainian)
[2018-04-08] MEDS ORDERED: Sodium Chloride 0.9% 1,000 ML IV STA ×2 (09:28→11:28)
[2018-04-08] MEDS ORDERED: Famotidine 20mg/50ml 20 MG/50 ML BAG IVPB STA (09:29)
[2018-04-08 10:06] LABS: BASO # 0.06 K/mm3 (0.0-2.0); BASO % 0.5 % (0.0-3.0); EOS % 0.3 % (1.5-5.0); GRAN # 7.99 (1.4-6.5); GRAN % 68.4 % (50.0-68.0); HEMOGLOBIN 16.1 g/dL (12.0-16.0); LYMPH # 2.8 (1.2-3.4); LYMPH % 23.7 % (22.0-35.0); MEAN CORPUSCULAR HEMOGLOBIN 30.3 pg (25.0-35.0); MEAN CORPUSCULAR HGB CONC 34.8 g/dl (31.0-37.0); MEAN PLATELET VOLUME 8.4 fl (7.0-11.0); MONO # 0.8 (0.1-0.6); MONO % 7.1 % (1.0-6.0); RBC 5.31 10^6/uL (3.5-6.1); RED CELL DISTRIBUTION WIDTH 13.4 % (11.5-14.5); WHITE BLOOD COUNT 11.7 10^3/ul (4.5-11.0)
[2018-04-08] MEDS ORDERED: DiphenhydrAMINE 50 mg/ml Inj IVP STA (10:41)
[2018-04-08 10:45] LABS: ALB/GLOB RATIO 1.4 (1.1-1.8); ALBUMIN 4.9 g/dL (3.0-4.8); ALT/SGPT 75 U/L (7-56); AST/SGOT 36 U/L (14-36); BLOOD UREA NITROGEN 18 mg/dL (7-21); CALCIUM 9.8 mg/dL (8.4-10.5); GFR AFRICAN-AMERICAN > 60; GFR NON-AFRICAN AMERICAN > 60; LIPASE 39 U/L (23-300)
[2018-04-08 12:51] LABS: URINE BILIRUBIN NEGATIVE (NEGATIVE); URINE BLOOD NEGATIVE (NEGATIVE); URINE GLUCOSE (UA) NEGATIVE (NEGATIVE); URINE LEUKOCYTE ESTERASE NEGATIVE Leu/uL (NEGATIVE); URINE PROTEIN NEGATIVE mg/dL (<30 mg/dL); URINE UROBILINOGEN 0.2 E.U./dL (<1 E.U./dL)
[2018-04-08 12:52] LABS: URINE APPEARANCE CLEAR (CLEAR); URINE COLOR YELLOW (YELLOW)
[2018-04-08] MEDS ORDERED: Lidocaine 5% Patch TD STA (13:37)
[2018-04-08 14:07] VITALS: BP 137/76; PULSE 91; RESP 18; O2SAT 96
== END 2018-04-08 14:23 | disposition home or self-care (01) ==
LOC: ED 07:59
DX: R11.2 Nausea with vomiting, unspecified (principal); E78.5 Hyperlipidemia, unspecified; K21.9 Gastro-esophageal reflux disease without esophagitis
CPT/HCPCS: 80053; 81003; 82948; 83690; 85025; 87086; 96361; 96365; 96375; 99284; J1200; J1885; J2405; J2765; J7030

== ENCOUNTER 2018-04-13 07:14 | Day surgery (SDC) | payer OTHER ==
[2018-04-13 07:51] LABS: BASO # 0.06 K/mm3 (0.0-2.0); BASO % 0.7 % (0.0-3.0); EOS # 0.1 (0.0-0.7); EOS % 0.6 % (1.5-5.0); GRAN # 6.02 (1.4-6.5); HEMOGLOBIN 15.2 g/dL (12.0-16.0); LYMPH % 22.7 % (22.0-35.0); MEAN CELL VOLUME 86.5 fl (80.0-105.0); MEAN CORPUSCULAR HEMOGLOBIN 30.5 pg (25.0-35.0); MEAN CORPUSCULAR HGB CONC 35.3 g/dl (31.0-37.0); MEAN PLATELET VOLUME 8.6 fl (7.0-11.0); MONO # 0.7 (0.1-0.6); RBC 4.98 10^6/uL (3.5-6.1); RED CELL DISTRIBUTION WIDTH 13.3 % (11.5-14.5); WHITE BLOOD COUNT 8.9 10^3/ul (4.5-11.0)
[2018-04-13 08:02] LABS: INR 1.04 (0.93-1.08); PARTIAL THROMBOPLASTIN TIME 30.1 Seconds (25.1-36.5)
[2018-04-13 08:26] LABS: ALB/GLOB RATIO 1.5 (1.1-1.8); ALBUMIN 4.7 g/dL (3.0-4.8); ALT/SGPT 38 U/L (7-56); AST/SGOT 23 U/L (14-36); BLOOD UREA NITROGEN 15 mg/dL (7-21); CALCIUM 9.4 mg/dL (8.4-10.5); GFR AFRICAN-AMERICAN > 60; GFR NON-AFRICAN AMERICAN > 60
[2018-04-13] MEDS ORDERED: Propofol 10 mg/ml Inj (20 ML) ONE (08:32)
[2018-04-13] MEDS ORDERED: Midazolam 2 MG/2 ML VIAL ONE (08:38)
[2018-04-13 09:10] VITALS: TEMP 98.2
[2018-04-13] MEDS ORDERED: Sodium Chloride 0.9% 1,000 ML IV SCH (09:15)
[2018-04-13] MEDS ORDERED: Morphine 2 mg/ml ISec IVP PRN (09:37)
[2018-04-13] MEDS ORDERED: Morphine 4 mg/ml ISec ONE (09:42)
[2018-04-13 10:42] VITALS: BP 158/91; PULSE 82; RESP 16; O2SAT 99
== END 2018-04-13 11:28 | disposition home or self-care (01) ==
LOC: ENDO 07:14
PROVIDERS: ATTEND Internal Medicine Gastroenterology
DX: K29.50 Unspecified chronic gastritis without bleeding (principal); D50.9 Iron deficiency anemia, unspecified
CPT/HCPCS: 36415; 43239; 80053; 83735; 85025; 85610; 85730; 88305; 88312; 88342; J2001; J2250; J2270 ×2; J2405; J2704; J3010; J7030 ×2

== ENCOUNTER 2018-06-09 12:18 | Emergency (ER) | payer OTHER ==
[2018-06-09 12:19] VITALS: BMI 33.6
[2018-06-09 12:26] VITALS: TEMP 98.4
--- NOTE | 2018-06-09 12:37 | ED PDOC ---
Arrival/HPI - General Chief Complaint: ENT Problem Time Seen by Provider: 06/09/18 12:27 Historian: Patient - History of Present Illness Narrative History of Present Illness (Text): 06/09/18 12:36 67 year old female, whose past medical history includes hyperlipidemia, SVT A- fib s/p ablation, and s/p transseptal ablation (05/2017), and shingles, presents to the emergency department complaining of chills, nausea, vomiting, and diarrhea that began this morning. Patient then reported she felt her throat swell up and developed difficulty swallowing which led her to call Dr. David who recommended to take Benadryl which relieved the symptoms for 2 hours, but has now returned. Patient reported multiple episodes of vomiting and diarrhea. Patient reports headache, but denies any fever, chest pain, shortness of breath , abdominal pain, urinary symptoms, back pain, neck pain, dizziness, or any other complaints. PMD: Dr. David Time/Duration: Other (this morning) Symptom Onset: Sudden Symptom Course: Unchanged Activities at Onset: Light Context: Home Past Medical History - Provider Review Nursing Documentation Reviewed: Yes - Infectious Disease Hx of Infectious Diseases: None - Tetanus Immunization Tetanus Immunization: Unknown - Reproductive Menopause: Yes - Cardiac Hx Pacemaker: No - Pulmonary Hx Respiratory Disorders: No - Neurological Hx Paralysis: No - HEENT Hx HEENT Disorder: Yes (eyeglasses) - Renal Hx Renal Disorder: No - Endocrine/Metabolic Hx Endocrine Disorders: No - Hematological/Oncological Hx Blood Transfusions: No Hx Blood Transfusion Reaction: No - Integumentary Hx Dermatological Disorder: No - Musculoskeletal/Rheumatological Hx Musculoskeletal Disorders: No - Gastrointestinal Hx Gastroesophageal Reflux: Yes - Genitourinary/Gynecological Hx Genitourinary Disorders: No - Psychiatric Hx Emotional Abuse: No Hx Physical Abuse: No Hx Substance Use: No - Surgical History Other/Comment: bilateral mastectomy - Anesthesia Hx Anesthesia Reactions: Yes (VOMITING) Hx Malignant Hyperthermia: No - Suicidal Assessment Feels Threatened In Home Enviroment: No Family/Social History - Physician Review Nursing Documentation Reviewed: Yes Family/Social History: No Known Family HX Smoking Status: Never Smoked Hx Alcohol Use: Yes (SOCIAL) Hx Substance Use: No Hx Substance Use Treatment: No Allergies/Home Meds Allergies/Adverse Reactions: Allergies levofloxacin [From Levaquin] Allergy (Severe, Verified 06/09/18 12:25) RASH pneumococcal vaccine Adverse Reaction (Verified 06/09/18 12:25) ITCHING Home Medications: Home Meds Medication Instructions Recorded Confirmed Omeprazole [Prilosec] 40 mg PO DAILY 02/29/16 06/09/18 Ondansetron ODT [Zofran ODT] 4 mg PO Q6H PRN 04/12/18 06/09/18 Ranitidine HCl [Zantac] 150 mg PO DAILY 04/12/18 06/09/18 Promethazine [Promethazine HCl] 25 mg RC BID PRN 04/13/18 06/09/18 Review of Systems - Physician Review All systems were reviewed & negative as marked: Yes - Review of Systems Constitutional: Other (Chills). absent: Fevers ENT: Other (Throat swelling and difficulty swallowing ) Respiratory: absent: SOB Cardiovascular: absent: Chest Pain Gastrointestinal: Diarrhea, Nausea, Vomiting. absent: Abdominal Pain Genitourinary Female: absent: Dysuria, Frequency, Hematuria Musculoskeletal: absent: Back Pain, Neck Pain Neurological: Headache. absent: Dizziness Physical Exam Vital Signs Reviewed: Yes Vital Signs Temp Pulse Resp BP Pulse Ox 06/09/18 15:13 87 18 137/87 99 06/09/18 12:55 86 18 97 06/09/18 12:21 98.4 F 115 H 20 144/102 H 97 Temperature: Afebrile Blood Pressure: Hypertensive Pulse: Tachycardic Respiratory Rate: Normal Appearance: Positive for: Well-Appearing, Non-Toxic, Comfortable Pain Distress: None Mental Status: Positive for: Alert and Oriented X 3 - Systems Exam Head: Present: Atraumatic, Normocephalic Pupils: Present: PERRL Extroacular Muscles: Present: EOMI Conjunctiva: Present: Normal Mouth: Present: Moist Mucous Membranes Pharnyx: Present: Other (Uvula swelling, but midline. No pus or redness). No: ERYTHEMA, TONSILS ENLARGED Neck: Present: Normal Range of Motion Respiratory/Chest: Present: Clear to Auscultation, Good Air Exchange. No: Respiratory Distress, Accessory Muscle Use Cardiovascular: Present: Regular Rate and Rhythm, Normal S1, S2. No: Murmurs Abdomen: No: Tenderness, Distention, Peritoneal Signs Back: Present: Normal Inspection Upper Extremity: Present: Normal Inspection. No: Cyanosis, Edema Lower Extremity: Present: Normal Inspection. No: Edema Neurological: Present: GCS=15, CN II-XII Intact, Speech Normal Skin: Present: Warm, Dry, Normal Color. No: Rashes Psychiatric: Present: Alert, Oriented x 3, Normal Insight, Normal Concentration Medical Decision Making ED Course and Treatment: 06/09/18 12:36 Impression: 67 year old female presents complaining of sudden onset of chills, nausea, vomiting, and diarrhea that began this morning. Patient then reports her throat began to swell up and has difficulty swallowing. Differential Diagnosis included but are not limited to: Uvulitis secondary to Vomiting, Acute Gastroenteritis Plan: -- Labs -- Benadryl, Pepcid, Solu-medrol, IV Fluids, Zofran Inj -- Reassess and disposition Prior Visits: Notes and results from previous visits were reviewed. Progress Notes: On reevaluation, patient felt much better. Her throat feels much better and she' s able to swallow more comfortably. She feels hydrated after IV fluids. Will discharge patient with Augmentin and Medrol dose back and have her follow up with her PMD. Advised to return to the ED if symptoms worsen or any other concern. Medrol dose pack was called in to [facility] in [place]. All other scripts given in Ed. - Lab Interpretations Lab Results: 06/09/18 12:55 06/09/18 12:55 Lab Results 06/09/18 12:55: Sodium 142, Potassium 4.0, Chloride 103, Carbon Dioxide 27, Anion Gap 16, BUN 16, Creatinine 0.7, Est GFR ( Amer) > 60, Est GFR (Non- Af Amer) > 60, Random Glucose 111 H, Calcium 10.0, Magnesium 2.0, Total Bilirubin 0.8, AST 29, ALT 26, Alkaline Phosphatase 77, Total Protein 8.1, Albumin 4.8, Globulin 3.3, Albumin/Globulin Ratio 1.5 06/09/18 12:55: WBC 7.9, RBC 5.01, Hgb 14.9, Hct 44.3, MCV 88.4, MCH 29.7, MCHC 33.6, RDW 13.4, Plt Count 307, MPV 8.9, Gran % 78.3 H, Lymph % (Auto) 15.8 L, [place] % (Auto) 5.3, Eos % (Auto) 0.1 L, Baso % (Auto) 0.5, Gran # 6.21, Lymph # ( Auto) 1.3, [place] # (Auto) 0.4, Eos # (Auto) 0.0, Baso # (Auto) 0.04 I have reviewed the lab results: Yes - Medication Orders Current Medication Orders: Discontinued Medications Amoxicillin/Clavulanate Potassium (Augmentin 875 Mg-125 Mg Tab) 1 tab PO STAT STA PRN Reason: Protocol Stop: 06/09/18 14:30 Diphenhydramine HCl (Benadryl) 25 mg IVP STAT STA Stop: 06/09/18 12:48 Last Admin: 06/09/18 13:05 Dose: 25 mg IVP Administration Document 06/09/18 13:05 HI (Rec: 06/09/18 13:05 [id number] Charges for Administration # of IVP Administrations 1 Famotidine (Pepcid 20mg/50ml Premix) 20 mg in 50 mls @ 100 mls/hr IVPB STAT STA Stop: 06/09/18 13:09 Last Admin: 06/09/18 13:02 Dose: 100 mls/hr eMAR Start Stop Document 06/09/18 13:02 HI (Rec: 06/09/18 13:03 [id number][facility] Intravenous Solution Start Date 06/09/18 Start Time 13:03 Sodium Chloride (Sodium Chloride 0.9%) 1,000 mls @ 999 mls/hr IV .Q1H1M STA Stop: 06/09/18 13:39 Last Admin: 06/09/18 13:04 Dose: 999 mls/hr eMAR Start Stop Document 06/09/18 13:04 HI (Rec: 06/09/18 13:04 [id number][facility] Intravenous Solution Start Date 06/09/18 Start Time 13:04 Methylprednisolone (Solu-Medrol) 125 mg IVP STAT STA Stop: 06/09/18 12:42 Last Admin: 06/09/18 13:01 Dose: 125 mg IVP Administration Document 06/09/18 13:01 HI (Rec: 06/09/18 13:01 [id number]) Charges for Administration # of IVP Administrations 1 Ondansetron HCl (Zofran Inj) 4 mg IVP STAT STA Stop: 06/09/18 12:41 Last Admin: 06/09/18 13:02 Dose: 4 mg IVP Administration Document 06/09/18 13:02 VT (Rec: 06/09/18 13:02 [facility]-[id number]) Charges for Administration # of IVP Administrations 1 - Scribe Statement The provider has reviewed the documentation as recorded by the Cynhtia Pritchett Provider Scribe Attestation: All medical record entries made by the Scribe were at my direction and personally dictated by me. I have reviewed the chart and agree that the record accurately reflects my personal performance of the history, physical exam, medical decision making, and the department course for this patient. I have also personally directed, reviewed, and agree with the discharge instructions and disposition. Disposition/Present on Arrival - Present on Arrival Any Indicators Present on Arrival: No History of DVT/PE: No History of Uncontrolled Diabetes: No Urinary Catheter: No History of Decub. Ulcer: No History Surgical Site Infection Following: None - Disposition Have Diagnosis and Disposition been Completed?: Yes Diagnosis: Uvulitis, Gastroenteritis Disposition: HOME/ ROUTINE Disposition Time: 15:00 Patient Plan: Discharge Condition: IMPROVED Discharge Instructions (ExitCare): Diarrhea in Adolescents and Adults, Sore Throat, Adult (DC) Additional Instructions: CORBY DAVILA, thank you for letting us take care of you today. Your provider was Chino Garg DO and you were treated for Uvulitis from Gastroenteritis. The emergency medical care you received today was directed at your acute symptoms. If you were prescribed any medication, please fill it and take as directed. It may take several days for your symptoms to resolve. Return to the Emergency Department if your symptoms worsen, do not improve, or if you have any other problems. Please contact your doctor or call one of the physicians/clinics you have been referred to that are listed on the Patient Visit Information form that is included in your discharge packet. Bring any paperwork you were given at discharge with you along with any medications you are taking to your follow up visit. Our treatment cannot replace ongoing medical care by a primary care provider outside of the emergency department. Thank you for allowing the [facility] team to be part of your care today. If you had an X-Ray or CT scan: A Radiologist will review the ED reading if any change in treatment is needed we will contact you. If you had a blood, urine, or wound culture: It will take several days for the results, if any change in treatment is needed we will contact you. If you had an STI test: It will take 48 hours for the results. Please call after 1 week if you have not heard back. Prescriptions: Amoxicillin/Clavulanate [Augmentin 875 MG-125 MG] 1 tab PO BID #20 tab Methylprednisolone [Medrol Dose Pack (21 tabs)] 4 mg PO DAILY #21 mg Ondansetron ODT [Zofran ODT] 4 mg PO Q6 #20 odt Ranitidine HCl [Zantac] 150 mg PO BID PRN #30 tablet PRN Reason: Pain, Mild (1-3) Referrals: Raul David MD [Primary Care Provider] - Follow up with primary Forms: [employer] (Irish), WORK NOTE
[2018-06-09] MEDS ORDERED: Sodium Chloride 0.9% 1,000 ML IV STA (12:39)
[2018-06-09] MEDS ORDERED: Famotidine 20mg/50ml 20 MG/50 ML BAG IVPB STA (12:40)
[2018-06-09] MEDS ORDERED: DiphenhydrAMINE 50 mg/ml Inj IVP STA (12:47)
[2018-06-09] MEDS ORDERED: DiphenhydrAMINE 50 mg/ml Inj ONE (12:49)
[2018-06-09 13:09] LABS: BASO # 0.04 K/mm3 (0.0-2.0); BASO % 0.5 % (0.0-3.0); EOS % 0.1 % (1.5-5.0); GRAN # 6.21 (1.4-6.5); GRAN % 78.3 % (50.0-68.0); HEMOGLOBIN 14.9 g/dL (12.0-16.0); LYMPH # 1.3 (1.2-3.4); LYMPH % 15.8 % (22.0-35.0); MEAN CELL VOLUME 88.4 fl (80.0-105.0); MEAN CORPUSCULAR HEMOGLOBIN 29.7 pg (25.0-35.0); MEAN CORPUSCULAR HGB CONC 33.6 g/dl (31.0-37.0); MEAN PLATELET VOLUME 8.9 fl (7.0-11.0); MONO # 0.4 (0.1-0.6); MONO % 5.3 % (1.0-6.0); RBC 5.01 10^6/uL (3.5-6.1); RED CELL DISTRIBUTION WIDTH 13.4 % (11.5-14.5); WHITE BLOOD COUNT 7.9 10^3/ul (4.5-11.0)
[2018-06-09 13:26] LABS: ALB/GLOB RATIO 1.5 (1.1-1.8); ALBUMIN 4.8 g/dL (3.0-4.8); ALT/SGPT 26 U/L (7-56); AST/SGOT 29 U/L (14-36); BLOOD UREA NITROGEN 16 mg/dL (7-21); GFR NON-AFRICAN AMERICAN > 60
[2018-06-09 14:07] VITALS: RESP 18
[2018-06-09] MEDS ORDERED: Amoxicillin-Clav 875-125 mg Tab PO STA (14:29)
[2018-06-09 15:16] VITALS: BP 137/87; PULSE 87; O2SAT 99
== END 2018-06-09 15:15 | disposition home or self-care (01) ==
LOC: ED 12:18
DX: K12.2 Cellulitis and abscess of mouth (principal); K52.9 Noninfective gastroenteritis and colitis, unspecified; E78.5 Hyperlipidemia, unspecified; I47.1 Supraventricular tachycardia; I48.91 Unspecified atrial fibrillation
CPT/HCPCS: 80053; 83735; 85025; 96374; 96375; 99284; J1200; J2405; J2930; J7030

== ENCOUNTER 2018-12-08 13:13 | Outpatient (CLI) | payer OTHER | END 2018-12-08 13:14 | disposition home or self-care (01) | LOC: RAD 13:13 ==

== ENCOUNTER 2019-01-15 09:17 | Outpatient (CLI) | payer OTHER | END 2019-01-15 09:18 | disposition home or self-care (01) | LOC: LAB 09:17 ==